=== PATIENT | male | born 1950 | race Asian ===

== ENCOUNTER 2019-12-07 14:40 | Outpatient (CLI) | payer OTHER | END 2019-12-07 14:53 | disposition home or self-care (01) | LOC: RAD 14:40 | PROVIDERS: ATTEND Internal Medicine | DX: I10 Essential (primary) hypertension (principal); M54.5 Low back pain; Z01.810 Encounter for preprocedural cardiovascular examination; E03.8 Other specified hypothyroidism; E78.89 Other lipoprotein metabolism disorders; E11.51 Type 2 diabetes mellitus with diabetic peripheral angiopathy without gangrene; E66.8 Other obesity; G62.89 Other specified polyneuropathies; E11.42 Type 2 diabetes mellitus with diabetic polyneuropathy ==

== ENCOUNTER 2022-04-24 11:52 | Outpatient (CLI) | payer OTHER | END 2022-04-24 12:00 | disposition home or self-care (01) | LOC: SONOGRAMA 11:52 | PROVIDERS: ATTEND General Practice | DX: R31.9 Hematuria, unspecified (principal) ==

== ENCOUNTER 2022-06-30 15:23 | Outpatient (CLI) | payer OTHER | END 2022-06-30 15:29 | disposition home or self-care (01) | LOC: RAD 15:23 | PROVIDERS: ATTEND Urology | DX: N20.0 Calculus of kidney (principal) ==

== ENCOUNTER 2024-04-03 09:45 | Outpatient (CLI) | payer OTHER | END 2024-04-03 09:50 | disposition home or self-care (01) | LOC: SONOGRAMA 09:45 | PROVIDERS: ATTEND Internal Medicine Endocrinology, Diabetes & Metabolism | DX: K76.0 Fatty (change of) liver, not elsewhere classified (principal) ==